=== PATIENT | female | born 1995 | race Caucasian/White ===

== ENCOUNTER 2025-05-27 15:27 | Emergency (ER) | payer OTHER, SELFPAY ==
[~2025-05-27] VITALS: Ht 162.6 cm; Wt 73.8 kg
[2025-05-27] MEDS ORDERED: TRAZ-186 PO (15:36)
[2025-05-27] MEDS: IPRATROPIUM 0.5 MG/ALBUTEROL 2.5 MG INH SOL UD 3 ML NEB ONE (17:09)
[2025-05-27] MEDS: predniSONE 20 MG TAB PO ONE (17:10)
[2025-05-27] MEDS ORDERED: ALBU2.5V10 NEB (17:51)
[2025-05-27] MEDS ORDERED: NEBU1EAC78 MC (17:51)
[2025-05-27] MEDS ORDERED: BENZ200C70 PO (17:51)
[2025-05-27] MEDS ORDERED: PRED20TA PO (17:51)
[2025-05-27 17:58] VITALS: BP 128/71; TEMP 99; O2SAT 97
== END 2025-05-27 17:59 | disposition home or self-care (01) ==
LOC: M ED 15:27
DX: B34.8 Other viral infections of unspecified site (principal); J45.909 Unspecified asthma, uncomplicated; Z88.1 Allergy status to other antibiotic agents; Z88.8 Allergy status to other drugs, medicaments and biological substances; Z79.52 Long term (current) use of systemic steroids; Z79.899 Other long term (current) drug therapy
CPT/HCPCS: 71045; 87486; 87581; 87633; 87798; 94640; 99283; J7512